=== PATIENT | female | born 1960 | race Caucasian/White ===

== ENCOUNTER → 2017-07-13 | Outpatient (CLI) | payer OTHER ==
--- NOTE | 2017-07-15 13:04 | PULMONARY FUNCTION TEST ---
DATE OF SERVICE: 07/13/2017 THE VITAL CAPACITY IS NORMAL. THE EXPIRATORY FLOW RATES ARE NORMAL. THE FEV1/VC IS 78%, PREDICTED: 83% LUNG VOLUMES BY NITROGEN WASH OUT METHOD SHOW: TLC IS 135% OF PREDICTED FRC IS 141% OF PREDICTED RV IS 139% OF PREDICTED THE DLCO IS 19.7, 101% OF PREDICTED. THE RV/TLC RATIO IS 41% PREDICTED 37% IMPRESSION: THE INSPIRATORY LIMB OF THE F-V LOOP WAS POORLY PERFORMED. THE EXPIRATORY SPIROGRAM WAS ADEQUATE. ALTHOUGH THE VC AND FEV1 ARE BOTH NORMAL, THE DECREASE IN FEV1/VC SUGGEST A SLIGHT OBSTRUCTIVE DEFECT. LUNG VOLUMES SHOW SLIGHT HYPERINFLATION; DIFFUSING CAPACITY IS NORMAL. CC: CARLEEN PAPPAS MD > [facility]
== END ==
LOC: RT 12:48
PROVIDERS: ATTEND Internal Medicine
DX: C71.2 Malignant neoplasm of temporal lobe (principal)
CPT/HCPCS: 94010; 94727; 94729

== ENCOUNTER → 2018-03-17 | Outpatient (CLI) | payer OTHER ==
--- NOTE | 2018-03-17 14:14 | WOMENS IMAGING REPORT ---
EXAM DESCRIPTION: BILAT SCREENING MAMMO W/CAD COMPLETED DATE/TIME: 03/17/2018 1:50 pm REASON FOR STUDY: ROUTINE SCREENING;Z12.31 Z12.31 ENCNTR SCREEN MAMMOGRAM FOR MALIGNANT NEOPLASM OF SONIA COMPARISON: [id number] TECHNIQUE: Standard craniocaudal and mediolateral oblique views of each breast recorded using iZ3Da l acquisition. LIMITATIONS: None. FINDINGS: No masses, calcifications or architectural distortion. No areas of suspicion. Read with the assistance of CAD. .[facility] - R2 Cenova Version 1.3 .[facility] - R2 Cenova Version 1.3 .[facility] - R2 Cenova Version 2.4 .[facility] [place] - R2 Cenova Version 2.4 .[facility] - R2 Sour Bleaching Pleater Version 9.2 IMPRESSION: NORMAL MAMMOGRAM. BIRADS 1. BREAST DENSITY: b. There are scattered areas of fibroglandular density. BIRAD: 1 NEGATIVE RECOMMENDATION: ROUTINE SCREENING COMMENT: The patient has been notified of the results by letter per SA requirements. Additional no tification policies are in place for contacting patient with suspicious or incomplete findings. Quality ID #[id number]: The [employer] recommends an annual screening mammogram for women aged 40 years or over. This facility utilizes a reminder system to ensure that all patients receive reminder letters, and/or direct phone calls for appointments. This includes reminders for routine scr eening mammograms, diagnostic mammograms, or other Breast Imaging Interventions when appropriate. Th is patient will be placed in the appropriate reminder system. The [employer] ([employer]) has developed recommendations for screening MRI of the breast s in certain patient populations, to be used in conjunction with mammography. Breast MRI surveillanc e may be appropriate for women with more than 20% lifetime risk of developing breast cancer as deter mined by genetic testing, significant family history of the disease, or history of mantle radiation f or Hodgkins Disease. ACR Practice Guidelines 2008. TECHNICAL DOCUMENTATION: FINDING NUMBER: (1) ASSESSMENT: (1) JOB ID: [id number]- All Rights Reserved Reading location - IP/workstation name: [email or web address]
== END ==
LOC: WI 13:27
PROVIDERS: ATTEND Family Medicine
DX: Z12.31 Encounter for screening mammogram for malignant neoplasm of breast (principal)
CPT/HCPCS: 77067

== ENCOUNTER → 2018-11-29 | Outpatient (CLI) | payer OTHER ==
--- NOTE | 2018-11-30 12:39 | Pulmonary Function Test ---
Pulmonary Function Test Date of Procedure:: 11/30/18 INDICATION:: Shortness of breath Referring Provider: Dr. Marcelino Corral Hostess Party Sales Representative: Eileen Cota AUTOGLAZIER - Report Spirometry: FVC 3.81 L 121% FEV1 2.89 L 113% FEV1/FVC % 76 predicted 83 FEF 25-75% 2.55 L 93% Lung Volume: Total lung capacity 7.23 L 141% Vital capacity 3.81 L 121% Inspiratory capacity 3.28 L FRC in 2 2.95 L 135% ERV 0.82 L RV 3.42 L 179% RV/TLC % 47 predicted 37 Diffusion Capactity: Diffusion capacity 24.0 115% DLCO/VA 3.66 92% Impression: No evidence for obstructive ventilatory defect. Normal diffusion capacity. Total lung capacity & residual volumes are elevated suggesting there may be some hyper inflation or air trapping
== END ==
LOC: RT 12:59
PROVIDERS: ATTEND Internal Medicine
DX: C71.2 Malignant neoplasm of temporal lobe (principal); R06.02 Shortness of breath
CPT/HCPCS: 94010; 94727; 94729

== ENCOUNTER → 2019-03-07 | Outpatient (CLI) | payer OTHER ==
--- NOTE | 2019-03-08 12:39 | Pulmonary Function Test ---
Pulmonary Function Test Date of Procedure:: 03/08/19 INDICATION:: Dyspnea Referring Provider: Natasha Mac Nursing Clerk: Mary Conway TELEPHONER, LAB SUPPORT TECH - Report Spirometry: Spirometry: pre-FVC: 5.02 L 158% pre-FEV:1 3.68 L 143% pre-FEV1/FVC % 73 predicted 82 [id number]% 2.71 L 98% Lung Volume: Total lung capacity: 7.60 L 146% Vital capacity: 5.02 L 56% Inspiratory capacity: 2.94 L FRC N2: 4.66 L 163% ERV: 1.80 L RV: 2.58 L 132% RV/TLC %: 34 predicted 37 Diffusion Capactity: Diffusion Capacity: DLCO; 22.0 101% DLCO/VA; 2.92 74% Impression: Minimal obstructive ventilatory defect. No restrictive ventilatory defect. Normal diffusion capacity. There is some evidence to suggest hyperinflation and air trapping.
== END ==
LOC: RT 12:18
PROVIDERS: ATTEND Physician Assistant Medical
DX: R06.02 Shortness of breath (principal); C71.9 Malignant neoplasm of brain, unspecified
CPT/HCPCS: 94010; 94727; 94729; 94761

== ENCOUNTER → 2019-05-30 | Outpatient (CLI) | payer OTHER ==
--- NOTE | 2019-06-01 10:39 | Pulmonary Function Test ---
Pulmonary Function Test Date of Procedure:: 05/30/19 INDICATION:: Dyspnea Referring Provider: Dr.Shonda Jerome Marcos Nutrition Services Worker: Mary Conway LICENSING COURT MAGISTRATE, SCREW MACHINE SET UP OPERATOR - Report Spirometry: Spirometry: pre-FVC: 3.43 L 108% pre-FEV:1 2.50 L 97% pre-FEV1/FVC % 73 predicted 82 [id number]% 1.75 L 64% Lung Volume: Total lung capacity: 4.84 L 93% Vital capacity: 3.50 L 110% Inspiratory capacity: 2.53 L FRC N2: 2.31 L 80% ERV: 0.67 L RV: 1.34 L 64% RV/TLC %: 28 predicted 37 Diffusion Capactity: DLCO: 13.9 65% DLCO/VA: 2.65 68% Impression: Borderline obstructive defect is implied by the decrease in flow [id number]%. No restrictive ventilatory defect. No hyperinflation. No air trapping. Mild decrease in diffusion capacity.
== END ==
LOC: RT 12:07
PROVIDERS: ATTEND Internal Medicine Hematology & Oncology
DX: C71.2 Malignant neoplasm of temporal lobe (principal); R06.00 Dyspnea, unspecified; Z13.83 Encounter for screening for respiratory disorder NEC; Z79.899 Other long term (current) drug therapy
CPT/HCPCS: 94010; 94727; 94729; 94761